=== PATIENT | male | born 1995 | race Caucasian/White ===

== ENCOUNTER 2024-03-29 20:29 | Emergency (ER) | payer OTHER, SELFPAY ==
[2024-03-29 20:34] VITALS: BP 110/77; PULSE 90; RESP 20; TEMP 37; O2SAT 98
--- NOTE | 2024-03-29 21:05 | ED.GENADUL_ITS ---
Discharge Plan Discharge Details Chief Complaint: PsychEval Primary Care Provider: None,None ED Provider: Viral Kinsey Home Meds and New Rx's Prescriptions: No Action No Known Home Meds HPI General Date/Time Provider Initiated Documentation: 03/29/24 21:01 . HPI Narrative: 28-year-old male history depression presents with thoughts of suicidal ideation, specifically using his gun to harm himself endorses getting into argument with his significant other. Denies injury, self injures behavior or intoxication. Denies prior psychiatric medication Related Data Home Medications ?Medication ?Instructions ?Recorded ?Confirmed Unknown [No Known Home Meds] 03/29/24 03/29/24 Allergies Allergy/AdvReac Type Severity Reaction Status Date / Time No Known Allergies Allergy Unverified 03/29/24 20:38 General Stated Complaint: PsychEval MARLYN: 2 Exam Narrative Exam Narrative: Alert oriented resting comfortably no acute distress Membranes tongue secretions normal voice Speaking full sentences no respiratory distress Alert oriented moving all extremities without deficit, no ataxia Systolic, quiet endorsing SI No lesions to skin no signs of trauma Course Vital Signs Vital signs: Vital Signs Temperature 37.0 C 03/29/24 20:34 Pulse 90 03/29/24 20:34 Respiratory Rate 20 03/29/24 20:34 Blood Pressure 110/77 03/29/24 20:34 Pulse Oximetry 98 03/29/24 20:34 Temperature 37.0 C 03/29/24 20:34 Pulse 90 03/29/24 20:34 Respiratory Rate 20 03/29/24 20:34 Respiratory Effort Normal, Non-Labored 03/29/24 20:51 Blood Pressure 110/77 03/29/24 20:34 Pulse Oximetry 98 03/29/24 20:34 Oxygen Delivery Method Room Air 03/29/24 20:34 Oxygen Flow Rate 0 03/29/24 20:34 Pain Level 0 03/29/24 20:34 Medical Decision Making 28-year-old male history of depression presents with suicidal ideation specifically using his gun to kill himself, triage note states that he endorses thoughts of jumping off a bridge however he denies this to me, endorses an argument with his significant other, denies prior psychiatric medication or hos pitalization. Denies intoxication or drug use denies self-harm. A friend has taken his firearm. Patient is alert oriented interactive hemodynamically stable afebrile nontoxic nonmeningeal no external signs of trauma no signs of intoxication, low suspicion for metabolic derangement infectious process traumatic process intracranial process such as hemorrhage edema or mass, high clinical suspicion for worsening depression with suicidal ideations no evidence of delusions or hallucinations to suggest acute psychosis. Patient will be moved to zone B for his comfort and safety, patient has been medically cleared for physical exam and history, will obtain urine toxicologic screening as this may aid his placement on the inpatient basis. Patient currently here voluntarily. Will initiate [facility] services evaluation 23: 24 patient will remain here voluntarily to await placement. Has been evaluated by [facility] services Quality:SDOH Health Related Social Needs: No Data to Display [facility] Social History Smoking/Tobacco Use Status: Current every day Tobacco Type: e-cigarettes Smoking risk assessment performed?: Yes Alcohol Intake: former Drug use: Current Sobriety Substance use type: former substance user and marijuana Details: last smoked marijuana about 1 month ago. 03/29/24 Housing: apartment Do you feel safe at home: Yes Do you feel safe in your relationship?: Yes
--- OUTSIDE RECORDS SUMMARY | 2024-03-29 21:34 | XMS_ITS | Continuity of Care Document ---
Author Organization [facility] Ambulatory Clinics Address [address] [place] [address] Encounter [facility] FIN NBR [id number] Date(s): 03/20/23 - 03/20/23 [facility] Ambulatory Clinics [address] [place], [place] [address] Encounter Diagnosis Bee sting reaction(Discharge Diagnosis) - 03/20/23 Discharge Disposition: Home or Self Care Attending Physician: Jerry Matos. PA Allergies, Adverse Reactions, Alerts No Known Medication Allergies Medications ondansetron 4 mg oral tablet, disintegrating 4 mg = 1 tab, Oral, every 4 hr, PRN as needed for nausea/vomiting, # 10 tab, 0 Refill(s) Start Date: 07/28/22 Status: Ordered Problem List Condition Confirmation Course Effective Dates Status Health St [facility] Informant Right sided abdominal pain Confirmed Active Vital Signs Most recent to oldest [Reference Range]: 1 Temperature Tympanic [36.6-37.9 Deg C] 3 6.7 Deg C (03/20/23 3:25 PM) Peripheral Pulse Rate [60-100 bpm] 72 bp m (03/20/23 3:25 PM) Respiratory Rate [12-24 br/min] 16 br/mi n (03/20/23 3:25 PM) Blood Pressure [90-140/60-90 mmHg] 101/6 5mmHg (03/20/23 3:25 PM) Weight 68.04 kg (03/20/23 3:25 PM) Weight Measured (lbs) 150.002 lb (03/20/23 3:25 PM) Height 157.48 cm (03/20/23 3:25 PM) Height/Length Measured (inches) 62 inch (03/20/23 3:25 PM) BSA Measured 1.73 m2 (03/20/23 3:25 PM) Body Mass Index 27.44 kg/m2 (03/20/23 3:25 PM) Social History Social History Type Response Tobacco Current everyday tob acco user, Current some day tobacco user Tobacco Use:. Sex Hospital Discharge Instructions Patient Education 03/20/2023 14:45:32 Bee, Wasp, or Hornet Sting, Adult Bee, Wasp, or Hornet Sting, Adult Bees, wasps, and hornets are part of a family of insects that can sting people. These stings can cause pain and inflammation, but they are usually not serious. However, some people may have an allergic reaction to a sting. This can cause the symptoms to be more severe. What increases the risk? You may be at a greater risk of getting stung if you: ??? Provoke a stinging insect by swatting or disturbing it. ??? Wear strong-smelling soaps, deodorants, or body sprays. ??? Spend time outdoors near gardens with burnham or fruit trees or in clothes that expose skin. ??? Eat or drink outside. What are the signs or symptoms? Common symptoms of this condition include: ??? A red lump in the skin that sometimes has a tiny hole in the center. In some cases, a stinger may be in the center of the wound. ??? Pain and itching at the sting site. ??? Redness and swelling around the sting site. If you have an allergic reaction (localized allergic reaction), the swelling and redness may spread out from the sting site. In some cases, this reaction can continue to develop over the next 24???48 hours. In rare cases, a person may have a severe allergic reaction (anaphylactic reaction) to a sting. Symptoms of an anaphylactic reaction may include: ??? Wheezing or difficulty breathing. ??? Raised, itchy, red patches on the skin (hives). ??? Nausea or vomiting. ??? Abdominal cramping. ??? Diarrhea. ??? Tightness in the chest or chest pain. ??? Dizziness or fainting. ??? Redness of the face (flushing). ??? Hoarse voice. ??? Swollen tongue, lips, or face. How is this diagnosed? This condition is usually diagnosed based on your symptoms and medical history as well as a physical exam. You may have an allergy test to determine if you are allergic to the substance that the insect injected during the sting (venom). How is this treated? If you were stung by a bee, the stinger and a small sac of venom may be in the wound. It is important to remove the stinger as soon as possible. You can do this by brushing across the wound with gauze, a fingernail, or a flat card such as a credit card. Removing the stinger can help reduce the severity of your body???s reaction to the sting. Most stings can be treated with: ??? Icing to reduce swelling in the area. ??? Medicines (antihistamines) to treat itching or an allergic reaction. ??? Medicines to help reduce pain. These may be medicines that you take by mouth, or medicated creams or lotions that you apply to your skin. Pay close attention to your symptoms after you have been stung. If possible, have someone stay withyou to make sure you do not have an allergic reaction. If you have any signs of an allergic reaction, call your health care provider. If you have ever had a severe allergic reaction, your health careprovider may give you an inhaler or injectable medicine (epinephrine auto-injector) to use if necessary. Follow these instructions at home: ??? Wash the sting site 2???3 times each day with soap and water as told by your health care provider. ??? Apply or take imvf-rxt-ubutjgv and prescription medicines only as told by your health care provider. ??? If directed, apply ice to the sting area. ??? Put ice in a plastic bag. ??? Place a towel between your skin and the bag. ??? Leave the ice on for 20 minutes, 2???3 times a day. ??? Do not scratch the sting area. ??? If you had a severe allergic reaction to a sting, you may need: ??? To wear a medical bracelet or necklace that lists the allergy. ??? To learn when and how to use an anaphylaxis kit or epinephrine injection. Your family members and coworkers may also need to learn this. ??? To carry an anaphylaxis kit or epinephrine injection with you at all times. How is this prevented? Avoid swatting at stinging insects and disturbing insect nests. ??? Do not use fragrant soaps or lotions. ??? Wear shoes, pants, and long sleeves when spending time outdoors, especially in grassy areas where stinging insects are common. ??? Keep outdoor areas free from nests or hives. ??? Keep food and drink containers covered when eating outdoors. ??? Avoid working or sitting near flowering plants, if possible. ??? Wear gloves if you are gardening or working outdoors. ??? If an attack by a stinging insect or a swarm seems likely in the moment, move away from the area or find a barrier between you and the insect(s), such as a door. Contact a health care provider if: ??? Your symptoms do not get better in 2???3 days. ??? You have redness, swelling, or pain that spreads beyond the area of the sting. ??? You have a fever. Get help right away if: You have symptoms of a severe allergic reaction. These include: ??? Wheezing or difficulty breathing. ??? Tightness in the chest or chest pain. ??? Light-headedness or fainting. ??? Itchy, raised, red patches on the skin. ??? Nausea or vomiting. ??? Abdominal cramping. ??? Diarrhea. ??? A swollen tongue or lips, or trouble swallowing. ??? Dizziness or fainting. Summary ??? Stings from bees, wasps, and hornets can cause pain and inflammation, but they are usually not serious. However, some people may have an allergic reaction to a sting. This can cause the symptoms to be more severe. ??? Pay close attention to your symptoms after you have been stung. If possible, have someone stay with you to make sure you do not have an allergic reaction. ??? Call your health care provider if you have any signs of an allergic reaction. This information is not intended to replace advice given to you by your health care provider. Make sure you discuss any questions you have with your health care provider. Document Revised: 04/21/2021 Document Reviewed: 04/23/2021 [employer] Patient Education ?? 2022 [employer] Physician Outpatient Note * Jerry Matos. LORNE: PERFORM Event Display: Office Clinic Note Physician Authored Date: [id number] JAMES SHAH:1995 Age:27 years Sex:Male Visit Date:03/20/2023 Chief Complaint Stung in the face x2 days ago, swelling getting worse, vision is worse in the right eye and starting to now affect the left, pt thinks it was a ground wasp. No trouble breathing or tounge swelling. Pt has taken benadryl last night and that stopped the itc History of Present Illness 2 days ago was stung by a??bee/hornet.?? He noted some itching he was stung in the right hand and just above the right eye. ??Today he awoke with swelling around his right eye, increased itching. ??He did use Benadryl last night.?? He denies any throat swallowing or breathing problems.?? He denies any history of bee allergy.?? Physical Exam Vitals & Measurements T:??36.7?C ??(Tympanic)?? HR:??72??(Peripheral)?? RR:??16?? BP:??101/65?? SpO2:??98%?? HT:??157.48??cm?? WT:??68.04??kg?? BMI:??27.44?? BSA:??1.73?? Well-appearing no acute distress examination of the right hand shows no evidence for bee sting no swelling. ??Examination of the right eye orbit shows swelling superior lateral. ??There is no lid swelling. ??There is normal eye movement. ??No induration.?? No discharge.?? Visual acuity is 20/20 bilateral.?? Also 20/20 each eye. Assessment/Plan 1.??Bee sting reaction??T63.441A Suspect localized reaction to bee sting. ??Recommend??longer acting antihistamine, ice packs.?? No signs for secondary infection. ??Recheck??if not improving over the next 24 to 48 hours. ??Patient agreeable. Patient Instructions Recommend gotq-ows-rywvdcs antihistamine like Zyrtec or Sharon, ice pack, recheck if not improvingover the next 24 to 48 hours. Patient Education Bee, Wasp, or Hornet Sting, Adult Problem List/Past Medical History Ongoing Right sided abdominal pain Historical No qualifying data Medications ondansetron 4 mg oral tablet, disintegrating, 4 mg= 1 tab, Oral, every 4 hr, PRN Allergies No Known Medication Allergies Social History Electronic Cigarette/Vaping Electronic Cigarette Use: Never. Tobacco Current everyday tobacco user, Current some day tobacco user Tobacco Use:. Electronically Signed on 03/20/23 03:49 PM Jerry PRADHAN Outpatient Summary note * Jerry Matos. LORNE: PERFORM Event Display: Ambulatory Patient Summary Authored Date: [id number] JAMES SHAH :1995 Age:27 years Sex:Male Visit Date:03/20/2023 Ambulatory Visit Instructions We would like to thank you for allowing us to assist you with your healthcare needs. The following includes patient education materials and information regarding your injury/illness. Your Next Steps Instructions From Your Care Team Recommend gfrg-fcs-ojcgytq antihistamine like Zyrtec or Sharon, ice pack, recheck if not improvingover the next 24 to 48 hours. Medications What How Much When Why Instructions Unchanged ondansetron (ondansetron 4 mg oral tablet, disintegrating) 1 tab Oral (given by mouth) Every 4 hours as needed for as needed for nausea/vomiting Right sided abdominal pain Your Summary Your Diagnosis Bee sting reaction Problems Ongoing - Any problem that you are currently receiving treatment for. Right sided abdominal pain Your Care Team Attending Physician - Jerry PRADHAN Discharge Vitals Temperature??(Tympanic) 98.1 ??F (36.7 ??C) Heart Rate??(Peripheral) 72 Respiratory Rate?? 16 Blood Pressure?? 101/65?? Height?? 62.00 in (157.48 cm) Weight?? 150.03 lb (68.04 kg) BMI?? 27.44 Allergies No Known Medication Allergies Education Materials Bee, Wasp, or Hornet Sting, Adult Bees, wasps, and hornets are part of a family of insects that can sting people. These stings can cause pain and inflammation, but they are usually not serious. However, some people may have an allergic reaction to a sting. This can cause the symptoms to be more severe. What increases the risk? You may be at a greater risk of getting stung if you: ? Provoke a stinging insect by swatting or disturbing it. ? Wear strong-smelling soaps, deodorants, or body sprays. ? Spend time outdoors near gardens with burnham or fruit trees or in clothes that expose skin. ? Eat or drink outside. What are the signs or symptoms? Common symptoms of this condition include: ? A red lump in the skin that sometimes has a tiny hole in the center. In some cases, a stinger may be in the center of the wound. ? Pain and itching at the sting site. ? Redness and swelling around the sting site. If you have an allergic reaction (localized allergic reaction), the swelling and redness may spread out from the sting site. In some cases, this reaction can continue to develop over the next 24???48 hours. In rare cases, a person may have a severe allergic reaction (anaphylactic reaction) to a sting. Symptoms of an anaphylactic reaction may include: ? Wheezing or difficulty breathing. ? Raised, itchy, red patches on the skin (hives). ? Nausea or vomiting. ? Abdominal cramping. ? Diarrhea. ? Tightness in the chest or chest pain. ? Dizziness or fainting. ? Redness of the face (flushing). ? Hoarse voice. ? Swollen tongue, lips, or face. How is this diagnosed? This condition is usually diagnosed based on your symptoms and medical history as well as a physical exam. You may have an allergy test to determine if you are allergic to the substance that the insect injected during the sting (venom). How is this treated? If you were stung by a bee, the stinger and a small sac of venom may be in the wound. It is important to remove the stinger as soon as possible. You can do this by brushing across the wound with gauze, a fingernail, or a flat card such as a credit card. Removing the stinger can help reduce the severity of your body???s reaction to the sting. Most stings can be treated with: ? Icing to reduce swelling in the area. ? Medicines (antihistamines) to treat itching or an allergic reaction. ? Medicines to help reduce pain. These may be medicines that you take by mouth, or medicated creams or lotions that you apply to your skin. Pay close attention to your symptoms after you have been stung. If possible, have someone stay withyou to make sure you do not have an allergic reaction. If you have any signs of an allergic reaction, call your health care provider. If you have ever had a severe allergic reaction, your health careprovider may give you an inhaler or injectable medicine (epinephrine auto-injector) to use if necessary. Follow these instructions at home: ? Wash the sting site 2???3 times each day with soap and water as told by your health care provider. ? Apply or take pudu-lyy-nchntyv and prescription medicines only as told by your health care provider. ? If directed, apply ice to the sting area. ? Put ice in a plastic bag. ? Place a towel between your skin and the bag. ? Leave the ice on for 20 minutes, 2???3 times a day. ? Do not scratch the sting area. ? If you had a severe allergic reaction to a sting, you may need: ? To wear a medical bracelet or necklace that lists the allergy. ? To learn when and how to use an anaphylaxis kit or epinephrine injection. Your family members and coworkers may also need to learn this. ? To carry an anaphylaxis kit or epinephrine injection with you at all times. How is this prevented? Avoid swatting at stinging insects and disturbing insect nests. ? Do not use fragrant soaps or lotions. ? Wear shoes, pants, and long sleeves when spending time outdoors, especially in grassy areas where stinging insects are common. ? Keep outdoor areas free from nests or hives. ? Keep food and drink containers covered when eating outdoors. ? Avoid working or sitting near flowering plants, if possible. ? Wear gloves if you are gardening or working outdoors. ? If an attack by a stinging insect or a swarm seems likely in the moment, move away from the area orfind a barrier between you and the insect(s), such as a door. Contact a health care provider if: ? Your symptoms do not get better in 2???3 days. ? You have redness, swelling, or pain that spreads beyond the area of the sting. ? You have a fever. Get help right away if: You have symptoms of a severe allergic reaction. These include: ? Wheezing or difficulty breathing. ? Tightness in the chest or chest pain. ? Light-headedness or fainting. ? Itchy, raised, red patches on the skin. ? Nausea or vomiting. ? Abdominal cramping. ? Diarrhea. ? A swollen tongue or lips, or trouble swallowing. ? Dizziness or fainting. Summary ? Stings from bees, wasps, and hornets can cause pain and inflammation, but they are usually not serious. However, some people may have an allergic reaction to a sting. This can cause the symptoms to be more severe. ? Pay close attention to your symptoms after you have been stung. If possible, have someone stay withyou to make sure you do not have an allergic reaction. ? Call your health care provider if you have any signs of an allergic reaction. This information is not intended to replace advice given to you by your health care provider. Make sure you discuss any questions you have with your health care provider. Document Revised: 04/21/2021 Document Reviewed: 04/23/2021 [employer] Patient Education ?? 2022 [employer]. Electronically Signed on: 03/20/2023 15:47 EDTSigned by:DARCY Patient Care team information Care Team Related Persons Name: FRANK MEDINA
--- OUTSIDE RECORDS SUMMARY | 2024-03-29 21:34 | XMS_ITS | Continuity of Care Document ---
Author Organization [facility] Address [address] [place] [address] Encounter LTTL_MS FIN NBR [id number] Date(s): 07/28/22 - 07/28/22 [facility] [address], [place] [address] Encounter Diagnosis Right sided abdominal pain(Discharge Diagnosis) - 07/28/22 Discharge Disposition: Home f/u Internal Provider Attending Physician: Randolph Jennings DO Admitting Physician: Randolph Jennings DO Functional Status 07/28/22 Other exposure to Infectious Disease Non e Medications ondansetron 4 mg oral tablet, disintegrating 4 mg = 1 tab, Oral, every 4 hr, PRN as needed for nausea/vomiting, # 10 tab, 0 Refill(s) Start Date: 07/28/22 Status: Ordered Problem List Condition Confirmation Course Effective Dates Status Health [facility] Informant Right sided abdominal pain Confirmed Active Results Laboratory List Name Date Urinalysis Microscopic 07/28/22 Urinalysis with Micro if Indicated and C ulture if Indicated 07/28/22 CBC w/ Diff 07/28/22 Comprehensive Metabolic Panel (CMP) 07/28 Lipase Level 07/28/22 Automated Diff 07/28/22 Most recent to oldest [Reference Range]: 1 WBC [4.8-10.8 K/mcL] 5.9 K/mcL (07/28/22 2:57 PM) RBC [4.20-6.10 Million/mcL] 4.73 Million /mcL (07/28/22 2:57 PM) Neutro Auto [42.2-75.2 %] 56.7 % (07/28/22 2:57 PM) Lymph Auto [20.5-51.1 %] 32.5 % (07/28/22 2:57 PM) Dade Auto [1.7-9.3 %] 7.6 % (07/28/22 2:57 PM) Basophil Auto [0.0-0.8 %] 1.0 % *HI* (07/28/22 2:57 PM) BUN [8-26 mg/dL] 12 mg/dL (07/28/22 2:57 PM) UA Color [Yellow] Yellow (07/28/22 3:07 PM) UA WBC [0-3] None Seen (07/28/22 3:07 PM) Glucose Level [74-106 mg/dL] 80 mg/dL (07/28/22 2:57 PM) Potassium Level [3.5-5.1 mmol/L] 3.7 mmo l/L (07/28/22 2:57 PM) Baso Absolute [0.0-0.2 K/mcL] 0.1 K/mcL (07/28/22 2:57 PM) MCV [80.0-99.0 fL] 90.5 fL (07/28/22 2:57 PM) UA Urobilinogen [0.2] 0.2 (07/28/22 3:07 PM) UA Bili [Negative] Negative (07/28/22 3:07 PM) UA Ketones [Negative] Negative (07/28/22 3:07 PM) AST [15-41 IntlUnit/L] 20 IntlUnit/L (07/28/22 2:57 PM) ALT [17-63 IntlUnit/L] 17 IntlUnit/L (07/28/22 2:57 PM) MCHC [32.0-36.0 g/dL] 33.9 g/dL (07/28/22 2:57 PM) Osmolality [275-295 mOsm/kg] 274 mOsm/kg *LOW* (07/28/22 2:57 PM) Sodium Level [134-143 mmol/L] 138 mmol/L (07/28/22 2:57 PM) UA RBC [0-3] 0-3 (07/28/22 3:07 PM) UA Leuk Est [Negative] Negative (07/28/22 3:07 PM) Lymph Absolute [1.2-3.4 K/mcL] 1.9 K/mcL (07/28/22 2:57 PM) UA Nitrite [Negative] Negative (07/28/22 3:07 PM) UA Glucose [Negative] Negative (07/28/22 3:07 PM) Hct [37.0-52.0 %] 42.8 % (07/28/22 2:57 PM) Lipase Level [18-51 unit/L] 101 unit/L *HI* (07/28/22 2:57 PM) Calcium Level [8.9-10.3 mg/dL] 9.2 mg/dL (07/28/22 2:57 PM) Dade Absolute [0.1-0.6 K/mcL] 0.4 K/mcL (07/28/22 2:57 PM) Albumin Level [3.5-5.0 g/dL] 4.2 g/dL (07/28/22 2:57 PM) Protein Total [6.5-8.1 g/dL] 7.5 g/dL (07/28/22 2:57 PM) UA Protein [Negative] Negative (07/28/22 3:07 PM) MCH [27.0-31.0 pg] 30.7 pg (07/28/22 2:57 PM) Neutro Absolute [1.4-6.5 K/mcL] 3.4 K/mc L (07/28/22 2:57 PM) Bilirubin Total [0.2-1.2 mg/dL] 0.4 mg/d L (07/28/22 2:57 PM) Hgb [12.0-18.0 g/dL] 14.5 g/dL (07/28/22 2:57 PM) Alk Phos [38-130 IntlUnit/L] 54 IntlUnit /L (07/28/22 2:57 PM) UA Blood [Negative] Trace *ABN* (07/28/22 3:07 PM) MPV [7.4-10.4 fL] 10.0 fL (07/28/22 2:57 PM) UA Spec Grav 1.020 *NA* (07/28/22 3:07 PM) Platelets [130-400 K/mcL] 199 K/mcL (07/28/22 2:57 PM) CO2 [22-32 mmol/L] 30 mmol/L (07/28/22 2:57 PM) Eos Absolute [0.0-0.2 K/mcL] 0.1 K/mcL (07/28/22 2:57 PM) UA pH 7.00 *NA* (07/28/22 3:07 PM) eGFR Non-AA 106 *NA* (07/28/22 2:57 PM) eGFR AA 106 *NA* (07/28/22 2:57 PM) UA Appear [Clear] Clear (07/28/22 3:07 PM) Chloride Level [98-111 mmol/L] 101 mmol/ L (07/28/22 2:57 PM) RDW-CV [11.5-14.5 %] 12.2 % (07/28/22 2:57 PM) A/G Ratio 1.3 *NA* (07/28/22 2:57 PM) BUN/Creat Ratio [8.0-20.0] 11.9 (07/28/22 2:57 PM) Globulin 3.3 *NA* (07/28/22 2:57 PM) Imm Gran Absolute 0.02 *NA* (07/28/22 2:57 PM) Imm Gran Auto [0.0-0.5 %] 0.3 % (07/28/22 2:57 PM) UA Culture Ind?. [No] No (07/28/22 3:07 PM) Creatinine Level [0.61-1.24 mg/dL] 1.01 mg/dL (07/28/22 2:57 PM) Anion Gap [3.0-12.0] 7.0 (07/28/22 2:57 PM) Eos, Auto [0.00-3.00 %] 1.90 % (07/28/22 2:57 PM) Radiology Reports * Exam Date Time Procedure Performing Provider Status 07/28/22 3:[address] Abdomen and Pelvi s w/o Contrast [place] Motley; Jerry (Verified) Notes: (CT Abdomen and Pelvis w/o Contrast) Reason For Exam: flank pain CT Abdomen and Pelvis w/o Contrast EXAM DESCRIPTION: CT Abdomen and Pelvis w/o Contrast 07/28/2022 INDICATION: FLANK PAIN TECHNIQUE: All CT scans at this facility use at least one of these dose optimization techniques: Automated exposure control; mA and/or kV adjustment per patient size (includes targeted exams where dose is matched to clinical indication); or iterative reconstruction. Technique: Axial CT images of the abdomen/pelvis without IV contrast administration COMPARISON: None FINDINGS: Visualized portions of the liver, spleen, pancreas and adrenal glands demonstrate a normal unenhanced CT appearance. Contracted gallbladder with no definite calcified gallstones No renal calculi on either side. No hydronephrosis or hydroureter on either side with no evidence of obstructing urinary tract calculus. Normal caliber abdominal aorta. No retroperitoneal adenopathy in the abdomen or pelvis. No bowel dilatation to suggest obstruction or ileus. No free intraperitoneal air, ascites or inflammatory changes. Normal appendix. The visualized lung bases are clear. No suspicious regional osseous lesions. IMPRESSION: No acute findings in the abdomen or pelvis No evidence of obstructing urinary tract calculus Nonobstructive bowel pattern. No free air or inflammatory changes. JOB #: [id number] Final Signed by: Bennett Glover MD Signed (Electronic Signature): 07/28/2022 3:53 pm Vital Signs Most recent to oldest [Reference Range]: 1 Temperature Temporal Artery [36-38 Deg C ] 6.6 Deg C *LOW* (07/28/22 2:23 PM) Peripheral Pulse Rate [60-100 bpm] 71 bp m (07/28/22 2:23 PM) Respiratory Rate [12-24 br/min] 20 br/mi n (07/28/22 2:23 PM) Blood Pressure [90-140/60-90 mmHg] 112/8 2mmHg (07/28/22 2:23 PM) Weight Dosing 73.00 kg (07/28/22 3:11 PM) Weight Estimated 73.00 kg (07/28/22 2:23 PM) Height/Length Dosing 170.000 cm (07/28/22 3:11 PM) Height/Length Estimated 170.000 cm (07/28/22 2:23 PM) Social History Social History Type Response Tobacco Current everyday tob acco user, Current some day tobacco user Tobacco Use:. Sex Hospital Discharge Instructions Patient Education 07/28/2022 15:36:35 Abdominal Pain, Adult Abdominal Pain, Adult Pain in the abdomen (abdominal pain) can be caused by many things. Often, abdominal pain is not serious and it gets better with no treatment or by being treated at home. However, sometimes abdominal pain is serious. Your health care provider will ask questions about your medical history and do a physical exam to try to determine the cause of your abdominal pain. Follow these instructions at home: Medicines ??? Take pcbc-bth-bvuhjch and prescription medicines only as told by your health care provider. ??? Do not take a laxative unless told by your health care provider. General instructions ??? Watch your condition for any changes. ??? Drink enough fluid to keep your urine pale yellow. ??? Keep all follow-up visits as told by your health care provider. This is important. Contact a health care provider if: ??? Your abdominal pain changes or gets worse. ??? You are not hungry or you lose weight without trying. ??? You are constipated or have diarrhea for more than 2???3 days. ??? You have pain when you urinate or have a bowel movement. ??? Your abdominal pain wakes you up at night. ??? Your pain gets worse with meals, after eating, or with certain foods. ??? You are vomiting and cannot keep anything down. ??? You have a fever. ??? You have blood in your urine. Get help right away if: ??? Your pain does not go away as soon as your health care provider told you to expect. ??? You cannot stop vomiting. ??? Your pain is only in areas of the abdomen, such as the right side or the left lower portion of the abdomen. Pain on the right side could be caused by appendicitis. ??? You have bloody or black stools, or stools that look like tar. ??? You have severe pain, cramping, or bloating in your abdomen. ??? You have signs of dehydration, such as: ??? Dark urine, very little urine, or no urine. ??? Cracked lips. ??? Dry mouth. ??? Sunken eyes. ??? Sleepiness. ??? Weakness. ??? You have trouble breathing or chest pain. Summary ??? Often, abdominal pain is not serious and it gets better with no treatment or by being treated at home. However, sometimes abdominal pain is serious. ??? Watch your condition for any changes. ??? Take qypv-gxb-uotjcwp and prescription medicines only as told by your health care provider. ??? Contact a health care provider if your abdominal pain changes or gets worse. ??? Get help right away if you have severe pain, cramping, or bloating in your abdomen. This information is not intended to replace advice given to you by your health care provider. Make sure you discuss any questions you have with your health care provider. Document Revised: 08/17/2020 Document Reviewed: 11/07/2019 Elsevier Patient Education ?? 2021 [employer]. Follow Up Care 07/28/2022 14:23:10 With:Primary care provider Address: When:2 to 4 days Physician Emergency department Note * Sri Macias DIRECTOR TALENT ACQUISITION: PERFORM Event Display: ED Note Physician Authored Date: [id number] JAMES SHAH :1995 Age:26 years Sex:Male Visit Date:07/28/2022 Basic Information Time Seen: Sri Gilberto DIRECTOR TALENT ACQUISITION / 07/28/2022 14:25 Chief Complaint pt has been having right under the rib pain the radiates to his back. History Of Present Illness: This is a 26-year-old male patient no significant past medical history who presents to the emergency department with a 5-day history of right-sided pain that radiates to his back.?? He denies any kind of trauma.?? There is no rashes or lesions.?? He has had no fever.?? He has had vomiting.?? He hasnot taken any ebjh-wla-gthhuls pain medication for his symptoms.?? They are not resolving so who presents for evaluation he has been tolerating fluids Review of Systems: Constitutional:?No??fevers,?No??chills,?No??sweats Eye:?No??recent visual problems ENT:?No??ear pain,?No??nasal congestion,?No??sore throat Respiratory:?No??shortness of breath,?No??cough Cardiovascular:?No??Chest pain,?No??palpitations,?No??syncope Gastrointestinal:?Positive fornausea,?Positive for??vomiting,?No??diarrhea, positive for right sided abd/back pain Endocrine:?No??excessive thirst,??No??excessive hunger Musculoskeletal:??No??back pain,??No??neck pain,??No??joint pain,??No??muscle pain,??No??decreased range of motion Integumentary:?No??rash,?No??pruritus,?No??abrasions Neurologic: Alert & oriented X 4 Psychiatric:?No??anxiety,?No??depression Physical Exam Vitals & Measurements T:??6.6?C ??(Temporal Artery)?? HR:??71??(Peripheral)?? RR:??20?? BP:??112/82?? SpO2:??100%?? HT:??170.000??cm?? WT:??73.00??kg??(Estimated)?? Pain Score:??8?? O2 Therapy:??Room air?? General: Alert and oriented, well nourished,?No??acute distress Eye: PERRL, EOMI,?Normal??conjunctiva HENT: Normocephalic, ??Normal?? hearing, moist oral mucosa,?No??scleral icterus Neck: Supple, non-tender, Lungs: Clear to auscultation Non-labored?? respiration Heart:?Normal?? rate,?Regular??rhythm Abdomen: Soft, non-tender, non-distended,?Normal?? bowel sounds,?No??masses Musculoskeletal:?Normal?? range of motion and strength,?No??tenderness,?No??swelling Skin: Skin is warm, dry and pink,?No??rashes,?No??lesions Neurologic: Awake, alert and oriented X4, CN II-XII intact Psychiatric: Cooperative, appropriate mood and affect Medical Decision Making: Patient presents with right-sided pain radiating to his back for the past 5 days.?? Has been tolerating fluids.?? States the pain has been constant Not associated with oral intake.?? Differentials include cholecystitis, muscle strain, pyelonephritis, renal colic, shingles Will obtain routine labs give 1 L of normal saline Phenergan 25 mg IV push Toradol 30 mg IV push check UA. Symptoms improved after receiving Toradol and Phenergan.?? His CT and labs are unremarkable.?? His abdominal exam remains benign, soft non tender, no rebound or guarding. no rashes.?? able to tolerate PO and stable for discharge to home. ?? Procedure No Qualifying Data Assessment/Plan 1.??Right sided abdominal pain??R10.9 Continue clear liquids advance as tolerated can use usgw-xtj-qjvuiwi pain medication as needed monitor for sign of rash.?? Will give prescription for ondansetron 4 mg for home use Ordered: ondansetron 4 mg oral tablet, disintegrating, 4 mg = 1 tab, Oral, every 4 hr, PRN as needed for nausea/vomiting, # 10 tab, 0 Refill(s) ?? Orders: Sodium Chloride 0.9% 1,000 mL, Total Volume (mL): 1,000, 1,000 mL, Soln-IV, IV Bolus, 999 mL/hr, Order Duration: 1 times, Start Date: 07/28/22 14:53:00 EST, Stop Date: 07/28/22 15:52:00 EST, PopulateCharting Weight From Order Patient Education Abdominal Pain, Adult Follow Up With When Contact Information Primary care provider Within 2 to 4 days Additional Instructions: Medication Reconciliation New Prescription ondansetron (ondansetron 4 mg oral tablet, disintegrating)1 tab Oral (given by mouth) every 4 hoursas needed as needed for nausea/vomiting. Refills: 0. Problem List/Past Medical History Ongoing Right sided abdominal pain Historical No qualifying data Medication Administration Given Sodium Chloride 0.9%, 1000 mL, IV Bolus Phenergan, IV Piggyback Toradol, 30 mg, IV Push Allergies No active allergies Social History Electronic Cigarette/Vaping Electronic Cigarette Use: Never. Tobacco Current everyday tobacco user, Current some day tobacco user Tobacco Use:. Diagnostic Results CT Abdomen and Pelvis w/o Contrast 07/28/2022 15:[address] Abdomen and Pelvis w/o Contrast ?? 07/28/22 15:53:29 EXAM DESCRIPTION: CT Abdomen and Pelvis w/o Contrast ?? 07/28/2022 ?? INDICATION: FLANK PAIN ?? TECHNIQUE: All CT scans at this facility use at least one of these dose optimization techniques: Automated exposure control; mA and/or kV adjustment per patient size (includes targeted exams where dose is matched to clinical indication); or iterative reconstruction. ?? Technique: Axial CT images of the abdomen/pelvis without IV contrast administration ?? COMPARISON: None ?? FINDINGS: Visualized portions of the liver, spleen, pancreas and adrenal glands demonstrate a normal unenhanced CT appearance. ?? Contracted gallbladder with no definite calcified gallstones ?? No renal calculi on either side. No hydronephrosis or hydroureter on either side with no evidence of obstructing urinary tract calculus. ?? Normal caliber abdominal aorta. No retroperitoneal adenopathy in the abdomen or pelvis. ?? No bowel dilatation to suggest obstruction or ileus. No free intraperitoneal air, ascites or inflammatory changes. Normal appendix. ?? The visualized lung bases are clear. No suspicious regional osseous lesions. ?? IMPRESSION: No acute findings in the abdomen or pelvis ?? No evidence of obstructing urinary tract calculus ?? Nonobstructive bowel pattern. No free air or inflammatory changes. ? JOB #: [id number] Electronically Signed By: ?? Signed By: Bennett Glover MD Lab Results CBC and Differential?? LATEST RESULTS?? WBC?? 07/28/22 14:57?? 5.9?? RBC?? 07/28/22 14:57?? 4.73?? Hgb?? 07/28/22 14:57?? 14.5?? Hct?? 07/28/22 14:57?? 42.8?? MCV?? 07/28/22 14:57?? 90.5?? MCH?? 07/28/22 14:57?? 30.7?? MCHC?? 07/28/22 14:57?? 33.9?? RDW-CV?? 07/28/22 14:57?? 12.2?? Platelets?? 07/28/22 14:57?? 199?? MPV?? 07/28/22 14:57?? 10.0?? Neutro Auto?? 07/28/22 14:57?? 56.7?? Lymph Auto?? 07/28/22 14:57?? 32.5?? Dade Auto?? 07/28/22 14:57?? 7.6?? Eos, Auto?? 07/28/22 14:57?? 1.90?? Basophil Auto?? 07/28/22 14:57?? 1.0 ??High?? Imm Gran Auto?? 07/28/22 14:57?? 0.3?? Neutro Absolute?? 07/28/22 14:57?? 3.4?? Lymph Absolute?? 07/28/22 14:57?? 1.9?? Dade Absolute?? 07/28/22 14:57?? 0.4?? Eos Absolute?? 07/28/22 14:57?? 0.1?? Baso Absolute?? 07/28/22 14:57?? 0.1?? Imm Gran Absolute?? 07/28/22 14:57?? 0.02? Routine Chemistry?? LATEST RESULTS?? Sodium Level?? 07/28/22 14:57?? 138?? Potassium Level?? 07/28/22 14:57?? 3.7?? Chloride Level?? 07/28/22 14:57?? 101?? CO2?? 07/28/22 14:57?? 30?? Alk Phos?? 07/28/22 14:57?? 54?? AST?? 07/28/22 14:57?? 20?? ALT?? 07/28/22 14:57?? 17?? BUN?? 07/28/22 14:57?? 12?? Glucose Level?? 07/28/22 14:57?? 80?? Creatinine Level?? 07/28/22 14:57?? 1.01?? BUN/Creat Ratio?? 07/28/22 14:57?? 11.9?? eGFR AA?? 07/28/22 14:57?? 106?? eGFR Non-AA?? 07/28/22 14:57?? 106?? Calcium Level?? 07/28/22 14:57?? 9.2?? Protein Total?? 07/28/22 14:57?? 7.5?? Albumin Level?? 07/28/22 14:57?? 4.2?? Globulin?? 07/28/22 14:57?? 3.3?? A/G Ratio?? 07/28/22 14:57?? 1.3?? Bilirubin Total?? 07/28/22 14:57?? 0.4?? Anion Gap?? 07/28/22 14:57?? 7.0?? Lipase Level?? 07/28/22 14:57?? 101 ??High?? Osmolality?? 07/28/22 14:57?? 274 ??Low? UA Macroscopic?? LATEST RESULTS?? UA Color?? 07/28/22 15:07?? Yellow?? UA Appear?? 07/28/22 15:07?? Clear?? UA Glucose?? 07/28/22 15:07?? Negative?? UA Bili?? 07/28/22 15:07?? Negative?? UA Ketones?? 07/28/22 15:07?? Negative?? UA Spec Grav?? 07/28/22 15:07?? 1.020?? UA Blood?? 07/28/22 15:07?? Trace Abnormal?? UA pH?? 07/28/22 15:07?? 7.00?? UA Protein?? 07/28/22 15:07?? Negative?? UA Urobilinogen?? 07/28/22 15:07?? 0.2?? UA Nitrite?? 07/28/22 15:07?? Negative?? UA Leuk Est?? 07/28/22 15:07?? Negative?? UA Culture Ind?.?? 07/28/22 15:07?? No? UA Microscopic?? LATEST RESULTS?? UA WBC?? 07/28/22 15:07?? None Seen?? UA RBC?? 07/28/22 15:07?? 0-3? Electronically Signed on 07/28/22 04:44 PM Sri Macias MASON Emergency department Discharge instructions * Sri Macias DIRECTOR TALENT ACQUISITION: PERFORM Event Display: ED Discharge Information Authored Date: [id number] ALYSSAJAMES KANG Hank :1995 Age:26 years Sex:Male Visit Date:07/28/2022 Discharge Instructions We would like to thank you for allowing us to assist you with your healthcare needs. The following includes patient education materials and information regarding your injury/illness. Diagnosis from Today's Visit Right sided abdominal pain Discharge Vitals Temperature??(Temporal Artery) 43.9 ??F (6.6 ??C) Heart Rate??(Peripheral) 71 Respiratory Rate?? 20 Blood Pressure?? 112/82?? Height?? 66.93 in (170.000 cm) Weight??(Estimated) 160.96 lb (73.00 kg) Allergies No active allergies What to Do Next You Need to Schedule the Following Appointments Follow Up with??Primary care provider When:??Within 2 to 4 days You were treated today on an emergency basis; it may be brown to contact your primary care provider to notify them of your visit today. You may have been referred to your regular doctor or a specialist, please follow up as instructed. If your condition worsens or you can't get in to see the doctor, contact the Emergency Department. Medications What How Much When Why Instructions Next Dose New ondansetron (ondansetron 4 mg oral tablet, disintegrating) 1 tab Oral (given by mouth) Every 4 hours as needed for as needed for nausea/vomiting Right sided abdominal pain Printed Prescription Education Materials Abdominal Pain, Adult Pain in the abdomen (abdominal pain) can be caused by many things. Often, abdominal pain is not serious and it gets better with no treatment or by being treated at home. However, sometimes abdominal pain is serious. Your health care provider will ask questions about your medical history and do a physical exam to try to determine the cause of your abdominal pain. Follow these instructions at home: Medicines ? Take jfrw-upl-kmzwhzg and prescription medicines only as told by your health care provider. ? Do not take a laxative unless told by your health care provider. General instructions ? Watch your condition for any changes. ? Drink enough fluid to keep your urine pale yellow. ? Keep all follow-up visits as told by your health care provider. This is important. Contact a health care provider if: ? Your abdominal pain changes or gets worse. ? You are not hungry or you lose weight without trying. ? You are constipated or have diarrhea for more than 2???3 days. ? You have pain when you urinate or have a bowel movement. ? Your abdominal pain wakes you up at night. ? Your pain gets worse with meals, after eating, or with certain foods. ? You are vomiting and cannot keep anything down. ? You have a fever. ? You have blood in your urine. Get help right away if: ? Your pain does not go away as soon as your health care provider told you to expect. ? You cannot stop vomiting. ? Your pain is only in areas of the abdomen, such as the right side or the left lower portion of the abdomen. Pain on the right side could be caused by appendicitis. ? You have bloody or black stools, or stools that look like tar. ? You have severe pain, cramping, or bloating in your abdomen. ? You have signs of dehydration, such as: ? Dark urine, very little urine, or no urine. ? Cracked lips. ? Dry mouth. ? Sunken eyes. ? Sleepiness. ? Weakness. ? You have trouble breathing or chest pain. Summary ? Often, abdominal pain is not serious and it gets better with no treatment or by being treated at home. However, sometimes abdominal pain is serious. ? Watch your condition for any changes. ? Take nuft-vhm-frahwno and prescription medicines only as told by your health care provider. ? Contact a health care provider if your abdominal pain changes or gets worse. ? Get help right away if you have severe pain, cramping, or bloating in your abdomen. This information is not intended to replace advice given to you by your health care provider. Make sure you discuss any questions you have with your health care provider. Document Revised: 08/17/2020 Document Reviewed: 11/07/2019 Elsevier Patient Education ?? 2021 [employer] Tests Performed Radiology CT Abdomen and Pelvis w/o Contrast 07/28/2022 15:55 EST Medications and Immunizations Administered Given Sodium Chloride 0.9%, 1000 mL, IV Bolus Phenergan, IV Piggyback Toradol, 30 mg, IV Push Lab Test Name Test Result Date/Time WBC 5.9 K/mcL 07/28/2022 14:57 EST RBC 4.73 Million/mcL 07/28/2022 14:57 EST Hgb 14.5 g/dL 07/28/2022 14:57 EST Hct 42.8 % 07/28/2022 14:57 EST MCV 90.5 fL 07/28/2022 14:57 EST MCH 30.7 pg 07/28/2022 14:57 EST MCHC 33.9 g/dL 07/28/2022 14:57 EST RDW-CV 12.2 % 07/28/2022 14:57 EST Platelets 199 K/mcL 07/28/2022 14:57 EST MPV 10.0 fL 07/28/2022 14:57 EST Neutro Auto 56.7 % 07/28/2022 14:57 EST Lymph Auto 32.5 % 07/28/2022 14:57 EST Dade Auto 7.6 % 07/28/2022 14:57 EST Eos, Auto 1.90 % 07/28/2022 14:57 EST Basophil Auto 1.0 % 07/28/2022 14:57 EST Imm Gran Auto 0.3 % 07/28/2022 14:57 EST Neutro Absolute 3.4 K/mcL 07/28/2022 14:57 EST Lymph Absolute 1.9 K/mcL 07/28/2022 14:57 EST Dade Absolute 0.4 K/mcL 07/28/2022 14:57 EST Eos Absolute 0.1 K/mcL 07/28/2022 14:57 EST Baso Absolute 0.1 K/mcL 07/28/2022 14:57 EST Imm Gran Absolute 0.02 07/28/2022 14:57 EST Sodium Level 138 mmol/L 07/28/2022 14:57 EST Potassium Level 3.7 mmol/L 07/28/2022 14:57 EST Chloride Level 101 mmol/L 07/28/2022 14:57 EST CO2 30 mmol/L 07/28/2022 14:57 EST Alk Phos 54 IntlUnit/L 07/28/2022 14:57 EST AST 20 IntlUnit/L 07/28/2022 14:57 EST ALT 17 IntlUnit/L 07/28/2022 14:57 EST BUN 12 mg/dL 07/28/2022 14:57 EST Glucose Level 80 mg/dL 07/28/2022 14:57 EST Creatinine Level 1.01 mg/dL 07/28/2022 14:57 EST BUN/Creat Ratio 11.9 07/28/2022 14:57 EST eGFR AA 106 07/28/2022 14:57 EST eGFR Non-AA 106 07/28/2022 14:57 EST Calcium Level 9.2 mg/dL 07/28/2022 14:57 EST Protein Total 7.5 g/dL 07/28/2022 14:57 EST Albumin Level 4.2 g/dL 07/28/2022 14:57 EST Globulin 3.3 07/28/2022 14:57 EST A/G Ratio 1.3 07/28/2022 14:57 EST Bilirubin Total 0.4 mg/dL 07/28/2022 14:57 EST Anion Gap 7.0 07/28/2022 14:57 EST Lipase Level 101 unit/L 07/28/2022 14:57 EST Osmolality 274 mOsm/kg 07/28/2022 14:57 EST UA Color YELLOW. 07/28/2022 15:07 EST UA Appear CLEAR. 07/28/2022 15:07 EST UA Glucose NEGATIVE 07/28/2022 15:07 EST UA Bili NEGATIVE 07/28/2022 15:07 EST UA Ketones NEGATIVE 07/28/2022 15:07 EST UA Spec Grav 1.020 07/28/2022 15:07 EST UA Blood TRACE 07/28/2022 15:07 EST UA pH 7.00 07/28/2022 15:07 EST UA Protein NEGATIVE 07/28/2022 15:07 EST UA Urobilinogen 0.2 07/28/2022 15:07 EST UA Nitrite NEGATIVE 07/28/2022 15:07 EST UA Leuk Est NEGATIVE 07/28/2022 15:07 EST UA Culture Ind?. No 07/28/2022 15:07 EST UA WBC None Seen 07/28/2022 15:07 EST UA RBC 0-3 07/28/2022 15:07 EST Patient/It Risk Advisor Signature Patient Name:JAMES SHAH I have received this information and my questions have been answered. Patient/It Risk Advisor Name: Patient/It Risk Advisor Signature: Relationship to Patient: Witness Name/Signature: Date: Electronically Signed on: 07/28/2022 16:44 ESTSigned by:[facility] CT Abdomen and Pelvis WO contrast * Bennett Glover MD: VERIFY, VERIFY Event Display: Report EXAM DESCRIPTION: CT Abdomen and Pelvis w/o Contrast 07/28/2022 INDICATION: FLANK PAIN TECHNIQUE: All CT scans at this facility use at least one of these dose optimization techniques: Automated exposure control; mA and/or kV adjustment per patient size (includes targeted exams where dose is matched to clinical indication); or iterative reconstruction. Technique: Axial CT images of the abdomen/pelvis without IV contrast administration COMPARISON: None FINDINGS: Visualized portions of the liver, spleen, pancreas and adrenal glands demonstrate a normal unenhanced CT appearance. Contracted gallbladder with no definite calcified gallstones No renal calculi on either side. No hydronephrosis or hydroureter on either side with no evidence of obstructing urinary tract calculus. Normal caliber abdominal aorta. No retroperitoneal adenopathy in the abdomen or pelvis. No bowel dilatation to suggest obstruction or ileus. No free intraperitoneal air, ascites or inflammatory changes. Normal appendix. The visualized lung bases are clear. No suspicious regional osseous lesions. IMPRESSION: No acute findings in the abdomen or pelvis No evidence of obstructing urinary tract calculus Nonobstructive bowel pattern. No free air or inflammatory changes. JOB #: [id number] Final Signed by: Bennett Glover MD Signed (Electronic Signature): 07/28/2022 3:53 pm
[2024-03-29] MEDS: Nicotine 7 MG/24 HR PATCH TD (22:51)
[2024-03-29] MEDS: LORazepam 0.5 MG TAB PO (22:51)
--- NOTE | 2024-03-30 00:24 | PDOC.MHCN ---
Date of service: 03/29/24 Time of Service: 22:11 PHQ-9 Over the last 2 weeks, how often have you been bothered by any of the following problems? 1. Little interest or pleasure in doing things: several days 2. Feeling down, depressed, or hopeless: more than half the days 3. Trouble falling or staying asleep, or sleeping too much: nearly every day 4. Feeling tired or having little energy: nearly every day 5. Poor appetite or overeating: more than half the days 6. Feeling bad about yourself - or that you are a failure or have let yourself and your family down: more than half the days 7. Trouble concentrating on things, such as reading the newspaper or watching television: nearly every day 8. Moving or speaking so slowly that other people could have noticed? - Or the opposite - being so fidgety or restless that you have been moving around a lot more than usual: not at all 9. Thoughts that you would be better off or of hurting yourself in some way: several days Total score: 17 If you checked off any problems, how difficult have these problems made it for you to do your work, take care of things at home, or get along with other people?: somewhat difficult Source: Developed by Drs. Glen Corado, Kelsie Morales, Mars Miles and colleagues, with an educational beth from [employer]. Suicide Severity Rate CSSRS Have you wished you were or wished you could go to sleep and not wake up?: Yes Have you actually had any thoughts of killing yourself?: Yes CSSRS2 Have you been thinking about how you might do this?: Yes Have you had these thoughts and had some intention of acting on them?: Yes Have you started to work out or worked out the details of how to kill yourself? Do you intend to carry out this plan?: Yes CSSRS3 Have you ever done anything, started to do anything or prepared to do anything to end your life?: Yes CSSRS4 Was this within the past three months?: No Screening Score Total Score: 6 Screening: Positive Mental Health Emergency Note Release [facility] release signed:: Yes Reason for Visit In the last 2 weeks has the pt presented for ES prior to today?: No Non Suicidal Self Injury Current: No History: No Safety Risk/Harm to Self or Others Current Ideation to Harm Self or Others: No Asssessment/Mental Status Appearance: Disheveled Attitude: Cooperative, Passive and Guarded Behavior: Unremarkable Speech: Soft and Hesitant Affect: Blunted and Flat Mood: Depressed Thought process: Blocking Hallucinations: No evidence Delusions: No evidence Attention: Unremarkable Perception: Not impaired Orientation: Fully orientated Memory: Intact Insight: Fair Judgement: Fair Neurovegetative Symptoms Sleep: Decrease Appetitie: Decrease Interests: Decrease Energy: Decrease Substance Use: Do you use nicotine?: Yes Have you used substances in the last 7 days?: yes, Nicotine Impression The client presented to [facility] for mental health support. The client reported that on his drive home from work, the client considered jumping off a bridge. The client is known to the agency was seen earlier in the day at [facility] for a clinical assessment with Moon Gray. Prior to tonight, the client was unknown to this technical document writer. The client was screened and assessed in person at [facility]. The client reported several different stories while at [facility]. The client reported that he planned to jump off a bridge he drives over everyday to get home from work. The client reported to this technical document writer that he was feeling good afterwork and when he drove over the bridge something happened. The client was asked if he had thoughts and first reported no. Client reported no for questions 4 and 5, but due to the events prior to assessment of client wanting to jump of a bridge, this technical document writer clicked yes. Client reported wanting to jump off a bridge and reported to [facility] staff members that he has possession of a gun and has thought about using it. The client was asked more specifically about wanting to jump off a bridge or use a gun. Client reported to this technical document writer that he reached into his bag and found his gun and when asked about the thoughts following this the client reported no direct thoughts but he can't control his actions. The client reported access to a gun, but added that his boss went to his home and took possession of all the clients access to means, his other guns, sharps, and belts. This client reported a past attempt 9 years prior, the client reported he tried to hang himself with his belt. The client reported no medical attention or mental health services happened after the attempt. The client reported a 17 out 27 on the PHQ-9. The client appeared to be guarded to this technical document writer, and was hesitant when speaking. And when the client did speak, it was in a soft tone. The client reported that he was interested in staying at the hospital for a few days to reset and figure out what's going on. The client was recommended to go for inpatient placement, the client reported that didn't want to feel contained.? Plan/Disposition Recommended Disposition: Hospitalization No. Plan: The client agreed to wait tonight at [facility] in zone [place]. The client will be referred to all inpatient facilities in the [facility]. The client will need an assessment in the morning and further evaluation. Reports/communication Outcome discussed with: ED/Personnel
--- NOTE | 2024-03-30 07:43 | W.EDPROG ---
Date of service: 03/30/24 Time of Service: 07:43 Medical Decision Making Patient seeking voluntary placement for depression/SI, no reported issues overnight and currently has no new acute complaints. Will continue to monitor until safe disposition found. Quality:[facility] Health Related Social Needs: No Data to Display Sign Out Sign Out Data: Sign Out Comment: depression, SI with possible intent to shoot self or jump off bridge, voluntary seen by [facility], awaiting placement, consider EE if tries to leave given risk Last updated by Viral Kinsey MD at 03/29/24 23:52 Sign Out Comment: Depression with suicidality, plan, here voluntarily and awaiting placement. Last updated by Anders Wu DO at 03/30/24 07:06 Discharge Plan Discharge Details Chief Complaint: PsychEval Primary Care Provider: None,None ED Provider: Celestino Brown Home Meds and New Rx's Prescriptions: No Action No Known Home Meds
[2024-03-30 07:58] VITALS: BP 108/63; PULSE 66; RESP 16; TEMP 36; O2SAT 99
[2024-03-30 08:49] LABS: *AMPHETAMINES SCREEN URINE Negative (Negative); *BARBITURATES SCREEN URINE Negative (Negative); *BENZODIAZEPINES SCREEN URINE Negative (Negative); Cannabinoids THC Negative (Negative); Cocaine Screen,Urine Negative (Negative); METHADONE URINE SCREEN Negative (Negative); OPIATES URINE SCREEN Negative (Negative)
[2024-03-30 08:51] LABS: Tricyclic Antidepressants Negative (Negative)
--- NOTE | 2024-03-30 10:07 | W.EDPROG ---
Date of service: 03/30/24 Time of Service: 10:08 Medical Decision Making Spoke with Neva Walter provider at [facility] who accepts to their facility. Quality:[facility] Health Related Social Needs: No Data to Display Sign Out Sign Out Data: Sign Out Comment: depression, SI with possible intent to shoot self or jump off bridge, voluntary seen by [facility], awaiting placement, consider EE if tries to leave given risk Last updated by Viral Kinsey MD at 03/29/24 23:52 Sign Out Comment: Depression with suicidality, plan, here voluntarily and awaiting placement. Last updated by Anders Wu DO at 03/30/24 07:06 Discharge Plan Disposition Specific Psychiatric Facility: [facility] [place] Condition: Stable Discharge Details Chief Complaint: PsychEval Clinical Impression: Suicidal ideation Primary Care Provider: None,None ED Provider: Celestino Brown Home Meds and New Rx's Prescriptions: No Action No Known Home Meds
--- NOTE | 2024-03-30 11:28 | W.EDPROG ---
Date of service: 03/30/24 Time of Service: 11:28 Medical Decision Making Patient did not want to [place] and we met with [facility] and feels much better after a good night of sleep and no longer has SI. He was safety plan at home and with mental health, he will follow-up with his PCP and mental health as an outpatient. Quality:[facility] Health Related Social Needs: No Data to Display Sign Out Sign Out Data: Sign Out Comment: depression, SI with possible intent to shoot self or jump off bridge, voluntary seen by [facility], awaiting placement, consider EE if tries to leave given risk Last updated by Viral Kinsey MD at 03/29/24 23:52 Sign Out Comment: Depression with suicidality, plan, here voluntarily and awaiting placement. Last updated by Anders Wu DO at 03/30/24 07:06 Discharge Plan Disposition Patient Disposition: Home Specific Psychiatric Facility: [facility] Condition: Stable Condition: Stable Discharge Details Chief Complaint: PsychEval Clinical Impression: Depression Primary Care Provider: None,None ED Provider: Celestino Brown Home Meds and New Rx's Prescriptions: No Action No Known Home Meds Discharge Instructions Additional Instructions: Follow-up with your primary care provider as well as outpatient mental health providers If you feel more ill or have worsening thoughts of self-harm return to your closest emergency department for reevaluation
== END 2024-03-30 11:35 | disposition home or self-care (01) ==
PROVIDERS: Emergency Medicine; Emergency Provider Emergency Medicine
DX: R45.851 Suicidal ideations (principal); F32.A Depression, unspecified; F17.290 Nicotine dependence, other tobacco product, uncomplicated
CPT/HCPCS: 00123; 80307; 96127; 99285; 99284